=== PATIENT | female | born 1965 | race Caucasian/White ===

== ENCOUNTER 2018-07-29 20:35 | Inpatient (IN) ==
[2018-07-29] MEDS ORDERED: ceFAZolin 2 GM Premix Inj 2 GM/50 ML PIGGYBACK IV.SIG ONE ×3 (20:40→22:11)
[2018-07-29] MEDS ORDERED: Gentamicin/NS 80 mg Premix 100 ML IV.SIG ONE (20:40)
[2018-07-29] MEDS ORDERED: Morphine Inj 4 MG/ML Vial ONE ×2 (20:44→20:50)
[2018-07-29 20:55] LABS: Baso # (Auto) 0.1 th/mm3 (0.0-0.2); Baso % (Auto) 1.1 % (0.0-2.0); Eos # (Auto) 0.2 th/mm3 (0.0-0.4); Eos % (Auto) 2.2 % (0.0-4.0); Hematocrit 35.1 % (35.0-46.0); Hemoglobin 12.8 gm/dL (11.6-15.3); Lymph # (Auto) 3.6 th/mm3 (1.0-4.8); Mean Corpuscular HGB Conc 36.4 % (32.0-36.0); Mean Corpuscular Hemoglobin 30.4 pg (27.0-34.0); Mean Corpuscular Volume 83.5 fL (80.0-100.0); Mean Platelet Volume 8.8 fL (7.0-11.0); Mono # (Auto) 0.4 th/mm3 (0.0-0.9); Mono % (Auto) 3.7 % (0.0-8.0); Neut # (Auto) 5.2 th/mm3 (1.8-7.7); Platelet Count 409 th/mm3 (150-450); Red Cell Distribution Width 13.4 % (11.6-17.2); White Blood Count 9.5 th/mm3 (4.0-11.0)
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
[2018-07-29 21:16] LABS: Activated Partial Thrombo Time 21.7 sec (23.4-31.7); Prothrombin Time 9.7 sec (9.8-11.6)
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
[2018-07-29] MEDS ORDERED: Morphine Inj 4 MG/ML Vial IV.PUSH ONE ×3 (21:53→22:15)
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
[2018-07-29] MEDS ORDERED: Diphtheria/Tetanus/Pertussis Vaccine Inj 0.5 ML Syringe IM ONE (22:11)
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
[2018-07-29] MEDS ORDERED: Acetaminophen 325 MG Tablet PO PRN (23:39)
[2018-07-29] MEDS ORDERED: Naloxone Inj 0.4 MG/ML Vial IV.PUSH PRN (23:42)
[2018-07-30] MEDS: Pantoprazole Inj 40 MG Vial IV.PUSH SCH (01:11)
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
[2018-07-30] MEDS ORDERED: Sod Chloride 0.9% Inj 1,000 ML IV.SIG SCH (01:30)
[2018-07-30 01:43] LABS: Hematocrit 23.1 % (35.0-46.0); Hemoglobin 7.5 gm/dL (11.6-15.3)
[2018-07-30] MEDS: Sod Chloride 0.9% Inj 1,000 ML IV.CONT SCH ×3 (02:55→17:51)
[2018-07-30] MEDS: HYDROmorphone PCA Inj 6 MG/30 ML PCA.VIAL PCA PRN ×2 (03:04→18:48)
[2018-07-30] MEDS: Chlorhexidine Gluconate 2% 1 Pack (2 Cloths) TOPICAL SCH (03:41)
[2018-07-30] MEDS ORDERED: Chlorhexidine Gluconate 2% 1 Pack (2 Cloths) TOPICAL PRN (04:00)
[2018-07-30] MEDS ORDERED: Potassium Chlor 20 mEq Premix 20 MEQ/100 ML PIGGYBACK IV.SIG PRN (04:13)
[2018-07-30] MEDS ORDERED: Potassium Chlor 40 mEq Premix 40 MEQ/100 ML PIGGYBACK IV.SIG PRN ×2 (04:13)
[2018-07-30] MEDS ORDERED: Potassium Phosphate 500 MG Soluble Tablet PO PRN ×2 (04:13)
[2018-07-30] MEDS ORDERED: Sodium Phosphate Inj 30 MMOL in Sodium Chlor 0.9% Inj 250 ML IV.SIG PRN (04:13)
[2018-07-30] MEDS ORDERED: Magnesium Sulfate Inj 4 GM in Sodium Chlor 0.9% Inj 92 ML IV.SIG PRN (04:13)
[2018-07-30] MEDS ORDERED: Potassium Chloride 25 MEQ Effervescent Tablet PO PRN (04:13)
[2018-07-30] MEDS ORDERED: Magnesium Sulfate Inj 2 GM in Sodium Chlor 0.9% Inj 96 ML IV.SIG PRN (04:13)
[2018-07-30] MEDS ORDERED: Potassium Phosphate Inj 30 MMOL in Sodium Chlor 0.9% Inj 250 ML IV.SIG PRN (04:13)
[2018-07-30] MEDS ORDERED: Magnesium Oxide 400 MG Tablet PO PRN (04:13)
[2018-07-30] MEDS ORDERED: ceFAZolin Inj 2,000 MG in Sodium Chlor 0.9% Inj 80 ML IV.SIG SCH (06:00)
[2018-07-30 06:19] LABS: Baso % (Auto) 0.2 % (0.0-2.0); Hematocrit 25.5 % (35.0-46.0); Hemoglobin 8.4 gm/dL (11.6-15.3); Lymph # (Auto) 0.7 th/mm3 (1.0-4.8); Lymph % (Auto) 5.5 % (9.0-44.0); Mean Corpuscular HGB Conc 32.9 % (32.0-36.0); Mean Corpuscular Hemoglobin 28.4 pg (27.0-34.0); Mean Corpuscular Volume 86.2 fL (80.0-100.0); Mean Platelet Volume 8.6 fL (7.0-11.0); Mono # (Auto) 0.8 th/mm3 (0.0-0.9); Mono % (Auto) 6.4 % (0.0-8.0); Neut # (Auto) 10.8 th/mm3 (1.8-7.7); Neut % (Auto) 87.9 % (16.0-70.0); Platelet Count 188 th/mm3 (150-450); Red Blood Count 2.96 mil/mm3 (4.00-5.30); White Blood Count 12.3 th/mm3 (4.0-11.0)
[2018-07-30 06:41] LABS: Anion Gap 8 meq/L (5-15); Blood Urea Nitrogen 13 mg/dL (7-18); Calcium 6.6 mg/dL (8.5-10.1); Carbon Dioxide 20.8 meq/L (21.0-32.0); Chloride 115 meq/L (98-107); Glomerular Filtration Rate Greater Than 89 mL/min (>89); Glucose,Random 124 mg/dL (74-106); Potassium 3.9 meq/L (3.5-5.1); Sodium 144 meq/L (136-145)
[2018-07-30] MEDS ORDERED: Famotidine PF Inj 20 MG/2 ML Vial ONE (06:43)
[2018-07-30 06:53] LABS: Albumin 2.2 g/dL (3.4-5.0)
[2018-07-30] MEDS ORDERED: ceFAZolin 1 GM Premix Inj 2 GM/100 ML PIGGYBACK IV.SIG ONE (07:07)
[2018-07-30] MEDS ORDERED: fentaNYL Citrate Inj 100 MCG/2 ML Ampul ONE (07:31)
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
[2018-07-30] MEDS ORDERED: ceFAZolin 2 GM Premix Inj 2 GM/50 ML PIGGYBACK IV.SIG SCH ×2 (07:45→14:00)
[2018-07-30] MEDS ORDERED: Albumin Human 25% Inj 100 ML IV.SIG ONE (08:33)
[2018-07-30] MEDS ORDERED: Gentamicin/NS 80 mg Premix 100 ML IV.SIG ONE (08:44)
[2018-07-30] MEDS ORDERED: HYDROmorphone PF Inj 0.5 MG/0.5 ML Syringe ONE ×3 (09:34→10:03)
--- NOTE | 2018-07-30 09:35 | XR ---
EXAM DATE: 07/30/2018 9:30 AM EST AGE/SEX: 53 years / Female INDICATIONS: Surgical repair, external fixation. CLINICAL DATA: This is the patient's initial encounter. Patient reports that signs and symptoms have been present for 1 day and indicates a pain score of Nonresponsive. MEDICAL/SURGICAL HISTORY: Non-responsive. Non-responsive. COMPARISON: No prior exams available for comparison. CONCLUSION: Fluoroscopic images demonstrates placement of external fixation device along the tibia and femur fixa ting a distal femoral fracture. Electronically signed by: Morgan Cheng MD Board Certified Radiologist 07/30/2018 9:34 AM EST
--- NOTE | 2018-07-30 10:09 | XR ---
EXAM DATE: 07/30/2018 10:03 AM EST AGE/SEX: 53 years / Female INDICATIONS: Post operative, external fixation. CLINICAL DATA: This is the patient's initial encounter. Patient reports that signs and symptoms have been present for 1 day and indicates a pain score of Nonresponsive. MEDICAL/SURGICAL HISTORY: Non-responsive. Non-responsive. COMPARISON: [facility], TIBIA FIBULA LEFT 2V, 07/30/2018. [facility], TIBIA FIBULA LEFT 1V, 07/29/2018. . FINDINGS: Views of left knee obtained. External fixation device along the femur and tibia fixating comminuted f racture of distal femur and proximal tibia. CONCLUSION: External fixation device with distal femoral and proximal tibial fractures. Electronically signed by: Morgan Cheng MD Board Certified Radiologist 07/30/2018 10:08 AM EST
--- NOTE | 2018-07-30 10:11 | XR ---
EXAM DATE: 07/30/2018 10:02 AM EST AGE/SEX: 53 years / Female INDICATIONS: Post operative, external fixation. CLINICAL DATA: This is the patient's initial encounter. Patient reports that signs and symptoms have been present for 1 day and indicates a pain score of Nonresponsive. MEDICAL/SURGICAL HISTORY: Non-responsive. Non-responsive. COMPARISON: [facility] [place], FOOT LEFT 1V, 07/29/2018. . FINDINGS: External fixation device along the mid tibia. Proximal tibial fracture again seen without significant displacement. Soft tissue swelling. CONCLUSION: External fixation device along the mid shaft of the tibia Electronically signed by: Morgan Cheng MD Board Certified Radiologist 07/30/2018 10:10 AM EST
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
[2018-07-30] MEDS ORDERED: Vancomycin Consult Pharmacy OTHER PRN (10:36)
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
[2018-07-30] MEDS: Vancomycin Inj 1,000 MG in Sodium Chlor 0.9% Inj 250 ML IV.SIG SCH (11:50)
[2018-07-30] MEDS: Ketorolac Inj 30 MG/ML (IVP) Vial IV.PUSH SCH ×2 (11:50→17:48)
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
[2018-07-30] MEDS: Methocarbamol 500 MG Tablet PO SCH (13:43)
--- NOTE | 2018-07-30 13:49 | ECG ---
Date Performed: 07/30/2018 Time Performed: 05:13:06 PTAGE: 53 years EKG: Sinus rhythm . Anterolateral ST-T changes are nonspecific Low QRS voltages in precordial leads Borderline ECG NO PREVIOUS TRACING DOCTOR: Christopher Arteaga Interpretating Date/Time 07/30/2018 13:47:55
[2018-07-30] MEDS ORDERED: traZODone 50 MG Tablet PO PRN (17:15)
[2018-07-30 20:10] LABS: Mean Corpuscular HGB Conc 33.6 % (32.0-36.0); Mean Corpuscular Hemoglobin 28.5 pg (27.0-34.0); Mean Corpuscular Volume 84.8 fL (80.0-100.0); Mean Platelet Volume 8.6 fL (7.0-11.0); Platelet Count 149 th/mm3 (150-450); Red Blood Count 1.85 mil/mm3 (4.00-5.30); Red Cell Distribution Width 14.5 % (11.6-17.2); White Blood Count 6.7 th/mm3 (4.0-11.0)
[2018-07-30 20:16] LABS: Hematocrit 15.6 % (35.0-46.0); Hemoglobin 5.3 gm/dL (11.6-15.3)
[2018-07-30 20:38] LABS: Anion Gap 10 meq/L (5-15); Blood Urea Nitrogen 8 mg/dL (7-18); Calcium 5.9 mg/dL (8.5-10.1); Carbon Dioxide 17.9 meq/L (21.0-32.0); Chloride 116 meq/L (98-107); Glomerular Filtration Rate Greater Than 89 mL/min (>89); Glucose,Random 140 mg/dL (74-106); Magnesium 1.3 mg/dL (1.5-2.5); Potassium 3.4 meq/L (3.5-5.1); Sodium 144 meq/L (136-145)
[2018-07-30 20:54] LABS: Albumin 2.1 g/dL (3.4-5.0)
[2018-07-30 20:58] LABS: Calcium-Albumin Corrected 7.4 mg/dL (8.5-10.1)
[2018-07-31 00:15] LABS: Hemoglobin 9.4 gm/dL (11.6-15.3)
[2018-07-31] MEDS: Docusate Sodium 100 MG Capsule PO SCH ×2 (00:16→10:47)
[2018-07-31] MEDS: Pantoprazole Inj 40 MG Vial IV.PUSH SCH (00:17)
[2018-07-31] MEDS: Vancomycin Inj 1,000 MG in Sodium Chlor 0.9% Inj 250 ML IV.SIG SCH ×2 (00:17→12:40)
[2018-07-31] MEDS: Methocarbamol 500 MG Tablet PO SCH ×4 (00:17→23:32)
[2018-07-31] MEDS: Potassium Chlor 20 mEq Premix 20 MEQ/100 ML PIGGYBACK IV.SIG PRN ×2 (01:40→03:59)
[2018-07-31 03:52] LABS: Baso % (Auto) 0.1 % (0.0-2.0); Hematocrit 27.2 % (35.0-46.0); Hemoglobin 9.6 gm/dL (11.6-15.3); Lymph # (Auto) 0.6 th/mm3 (1.0-4.8); Lymph % (Auto) 7.7 % (9.0-44.0); Mean Corpuscular HGB Conc 35.4 % (32.0-36.0); Mean Corpuscular Hemoglobin 28.8 pg (27.0-34.0); Mean Corpuscular Volume 81.2 fL (80.0-100.0); Mean Platelet Volume 8.8 fL (7.0-11.0); Mono # (Auto) 0.4 th/mm3 (0.0-0.9); Mono % (Auto) 4.8 % (0.0-8.0); Neut # (Auto) 7.1 th/mm3 (1.8-7.7); Neut % (Auto) 87.4 % (16.0-70.0); Platelet Count 123 th/mm3 (150-450); Red Blood Count 3.35 mil/mm3 (4.00-5.30); Red Cell Distribution Width 14.7 % (11.6-17.2); White Blood Count 8.1 th/mm3 (4.0-11.0)
[2018-07-31 04:28] LABS: Alanine Aminotransferase 17 U/L (10-53); Albumin 2.5 g/dL (3.4-5.0); Alkaline Phosphatase 41 U/L (45-117); Anion Gap 7 meq/L (5-15); Aspartate Aminotransferase 28 U/L (15-37); Blood Urea Nitrogen 9 mg/dL (7-18); Calcium 7.3 mg/dL (8.5-10.1); Carbon Dioxide 23.5 meq/L (21.0-32.0); Chloride 114 meq/L (98-107); Glomerular Filtration Rate Greater Than 89 mL/min (>89); Glucose,Random 129 mg/dL (74-106); Potassium 4.4 meq/L (3.5-5.1); Sodium 144 meq/L (136-145); Total Protein 4.8 g/dL (6.4-8.2)
[2018-07-31] MEDS: Chlorhexidine Gluconate 2% 1 Pack (2 Cloths) TOPICAL SCH (05:41)
[2018-07-31] MEDS: HYDROmorphone PCA Inj 6 MG/30 ML PCA.VIAL PCA PRN (06:21)
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
--- NOTE | 2018-07-31 09:57 | ECG ---
Date Performed: 07/30/2018 Time Performed: 20:06:04 PTAGE: 53 years EKG: Sinus rhythm . Anterior T wave changes are nonspecific Borderline ECG PREVIOUS TRACING : 07/30/2018 05.13 DOCTOR: Sravan Mccall Interpretating Date/Time 07/31/2018 09:55:11
[2018-07-31] MEDS: Enoxaparin Inj 30 MG/0.3 ML Syringe SQ SCH ×2 (10:47→23:32)
[2018-07-31] MEDS: Sod Chloride 0.9% Inj 1,000 ML IV.CONT SCH ×4 (12:41→21:40)
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
[2018-07-31] MEDS ORDERED: *HYDROmorphone PF Inj 1 MG/ML Ampul PERIprocedural Use ONLY ONE (15:46)
[2018-07-31] MEDS ORDERED: Chlorhexidine Gluconate 0.12% Liq 15 ML UDC ONE (16:05)
[2018-07-31] MEDS ORDERED: Lidocaine 1%/Epinephrine 1:100,000 Inj 50 ML Vial ONE (16:06)
--- NOTE | 2018-07-31 16:17 | P.OP ---
- Preoperative Diagnosis (1) Nasal bone fractures (2) Nasal septum fracture (3) LeFort II fracture - Postoperative Diagnosis (1) LeFort II fracture (2) Nasal bone fractures (3) Nasal septum fracture Date of procedure: 07/31/18 Procedure: - Open reduction, internal fixation of a LeFort II fracture - Closed reduction of nasal fracture and nasal septum fracture - Layered closure of right supraorbital laceration (6 cm) Implants: -KLS 2.0 L plates x2 -KLS 1.5 L plate x1 -KLS 1.5 curved plate x1 -KLS 1.5 straight 6 hole plate -KLS 1.5 and 2.0mm screws Anesthesia: GETA, local Surgeon: Fernie Sandoval DDS, MD Carpet Cutter: Buddy Baez Estimated blood loss (mL): 75 IV fluids (mL): 1,500 Urine output (mL): 250 Pathology: none sent Operation and Findings: Operative findings: - Midface was stable and the occlusion was repeatable - Forced duction test was normal at the beginning and conclusion of the case with no extraocular muscle restriction -Bilateral nasal passages were clear and equal following manipulation of the nasal septum. Procedure: The patient was identified in the preoperative holding area and medical history and informed consent were reviewed with the patient. All questions were answered. The patient was taken via stretcher to operating room 8. Standard lines and monitors were applied. The patient was preoxygenated and general anesthesia was induced via IV. The patient was intubated nasoendotracheally without complications. The tube was secured by the attacher team. Bilateral breath sounds and end tidal CO2 were noted. The patient was then transferred to the operating room table and placed in the supine position. Both arms were tucked. Extremities were evaluated and found to be in normal range of motion with all pressure points padded. Preoperative antibiotics were administered. A second timeout was made. Local anesthetic was injected in the bilateral maxilla and mandible. The patient was prepped and draped using sterile technique in a usual attacher manner. A throat pack was placed and noted. A forced duction test was performed in the bilateral globes and was normal without restriction of the extraocular muscles. Vishnu arch bars were measured to fit the dentition of the mandible and maxilla. Beginning with the maxilla, an Vishnu arch bar was ligated to the individual teeth from premolar to premolar with the exception of tooth #8 which had grade II mobility pre-operatively using 24-gauge wire. Stability of the arch bar was then verified using wire drivers and found to be stable and nonmobile. The mandibular Vishnu arch bar was then placed and ligated to the available dentition using 24-gauge wire from premolar to premolar. Stability was then verified with a wire haul driver. Electrocautery was then used to make a a right maxillary vestibular incision from the zygomatic buttress toward the maxillary midline. The incision was carried down to bone and #9 periosteal elevator was used to dissect in a subperiosteal plane to expose the anterior maxilla. The fractures were identified along the zygomaticomaxillary and nasomaxillary buttresses. Electrocautery was then used to make a left maxillary vestibular incision from the zygomatic buttress toward the maxillary midline. The incision was carried down to bone and #9 periosteal elevator was used to dissect in a subperiosteal plane to expose the anterior maxilla. The fractures were identified along the zygomaticomaxillary and nasomaxillary buttresses. The incisions were packed with Raytecs and attention was then directed to the right supraorbital region. The right supraorbital laceration was irrigated with copious normal saline and a #15 blade was used to extend the incision laterally and deep to the periosteum to the zygomaticofacial suture region along the superolateral aspect of the right orbit. Electrocautery was used to achieve hemostasis. A periosteal elevator was then used to dissect in a subperiosteal plane used to explore the fracture of the right zygomaticofacial region. Site was then packed with a Ray-Ann. Attention was then directed back intraorally. The intraoral RayTecs were removed The patient was then brought into maxillomandibular fixation using 24-gauge wire. The occlusion was stable and repeatable. Attention was then turned back to the right maxilla where the fractures were noted to be well aligned. A 2.0 KLS L-plate was then bent to conform to the right zygomaticomaxillary buttress and was subsequently secured in place via 2.0 KLS screws via predrilled osteotomies under copious irrigation. Next a 1.5 KLS 6-hole plate was adapted to the nasomaxillary buttress and secured in place with 4, 1.5 KLS screws via predrilled osteotomies under copious irrigation. Attention was then turned to the left maxilla with a fractures were noted to be well aligned. A 2.0 KLS L plate was then bent to conform to the left zygomaticomaxillary buttress and was subsequently were secured in place via 2.0 KLS screws were predrilled osteotomies under copious irrigation. Next, a 1.5 KLS L plate was adapted to the left nasomaxillary buttress and secured in place with 4, 1.5 KLS screws via predrilled osteotomies under copious irrigation. Attention was then directed to the right supraorbital region where a 1.5 KLS 7 hole curved plate was adapted to the right zygomaticofacial region. The fracture was noted to be well aligned and the plate was secured in place with 4 , 1.5 KLS screws via predrilled osteotomies under copious irrigation. Attention was then turned intraorally where the vestibular incision was irrigated with copious normal saline and both the right and left vestibular incisions were reapproximated using 3-0 Vicryl in a running interlocking and interrupted fashion. There was a laceration of the right mandibular anterior vestibule extending only through mucosa which was irrigated with copious normal saline and reapproximated in interrupted fashion using 3-0 Vicryl suture and 3- 0 chromic suture. The soft tissue of the lower lip was noted to have 3, 5 mm lacerations through the vermilion which were reapproximated using 3-0 chromic suture in an interrupted fashion after irrigation with copious normal saline. Attention was then directed back to the supraorbital region where electrocautery was used to achieve hemostasis. The wound was irrigated with copious normal saline. The laceration was closed in layers using 3-0 Vicryl suture for the deeper layers in a buried interrupted fashion. The skin was then closed in a running interlocking fashion using 5-0 Prolene suture. The patient was then cleansed and dried. Patient was turned over to the anesthesia care team where she was extubated without complication. An LMA was then placed. Bacitracin was applied to the laceration and the abrasion over the right cheek. Local anesthetic was locally infiltrated intranasally along the fracture site as well as via bilateral CN V1 and CN V II nerve blocks. A urethral sound was placed in the bilateral nares and the left naris was noted to be more constricted than the right. Asch forceps were used to reposition the nasal septum into proper anatomical alignment. Afrin nasal spray was used to achieve hemostasis intranasally. The bilateral nasal bones were then elevated using a Goodrich elevator. The nasal bones were manipulated digitally until good anatomical contour was obtained. A uterine sound was then passed along each nasal passage with good patency noted. Sarmiento splints coated with bacitracin were placed in the bilateral nares to hold the septum in proper anatomical position and secured in place with a single interrupted 2-0 silk suture. Mastisol was placed over the dorsum of the nose and adhesive strips were placed over the skin along the nasal dorsum. A Mazon splint was placed on the dorsum of the nose. The oropharynx was suctioned thoroughly. The patient was then turned back to the Anesthesia team, where she was awakened without event and the LMA was removed. The patient was then taken to the PACU for recovery. Post-operative plan: Patient is to return to the trauma service for management of the remainder of her injuries. Patient will be placed on a pured diet and kept on sinus precautions. Her nasal splints and skin sutures will be removed in approximately 1 week.
[2018-07-31] MEDS ORDERED: Artificial Tears Opth Drops 15 ML Bottle ONE (16:58)
[2018-07-31] MEDS ORDERED: Dexmedetomidine Inj 200 MCG/2 ML Vial ONE (17:12)
[2018-07-31] MEDS ORDERED: ceFAZolin Inj 1 GM Vial (Addvantage) IV.SIG ONE (18:05)
[2018-07-31] MEDS: Microfibrillar Collagen Hemostat 1 GM Packet TOPICAL ONE ×2 (19:15→19:33)
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
--- NOTE | 2018-07-31 20:40 | P.BOP ---
- Preoperative Diagnosis (1) LeFort II fracture (2) Nasal bone fractures (3) Nasal septum fracture - Postoperative Diagnosis (1) LeFort II fracture (2) Nasal bone fractures (3) Nasal septum fracture Date of procedure: 07/31/18 Procedure: - ORIF LeFort II fracture - Closed reduction of nasal bone and nasal septum fracture - Layered closure of right supraorbital laceration (6 cm) Implants: -KLS 2.0 L plates x2 -KLS 1.5 L plate x1 -KLS 1.5 curved plate x1 -KLS 1.5 straight 6 hole plate -KLS 1.5 and 2.0mm screws Anesthesia: GETA, local Surgeon: Fernie Sandoval DDS, MD Bank Officer: Buddy Baez Estimated blood loss (mL): 75 IV fluids (mL): 1,500 Urine output (mL): 250 Pathology: none sent Condition: stable Disposition: ICU
[2018-07-31] MEDS ORDERED: fentaNYL Citrate Inj 100 MCG/2 ML Ampul ONE (20:47)
[2018-08-01] MEDS: Docusate Sodium 100 MG Capsule PO SCH ×3 (00:20→20:46)
[2018-08-01] MEDS: Pantoprazole Inj 40 MG Vial IV.PUSH SCH ×2 (00:51→23:39)
[2018-08-01] MEDS: Vancomycin Inj 1,000 MG in Sodium Chlor 0.9% Inj 250 ML IV.SIG SCH ×2 (00:51→13:00)
[2018-08-01] MEDS: HYDROmorphone PCA Inj 6 MG/30 ML PCA.VIAL PCA PRN (01:19)
[2018-08-01 03:44] LABS: Baso % (Auto) 0.2 % (0.0-2.0); Hematocrit 25.7 % (35.0-46.0); Hemoglobin 8.9 gm/dL (11.6-15.3); Lymph # (Auto) 0.8 th/mm3 (1.0-4.8); Lymph % (Auto) 10.3 % (9.0-44.0); Mean Corpuscular HGB Conc 34.5 % (32.0-36.0); Mean Corpuscular Hemoglobin 28.6 pg (27.0-34.0); Mean Corpuscular Volume 82.9 fL (80.0-100.0); Mean Platelet Volume 9.3 fL (7.0-11.0); Mono # (Auto) 0.5 th/mm3 (0.0-0.9); Mono % (Auto) 6.6 % (0.0-8.0); Neut # (Auto) 6.4 th/mm3 (1.8-7.7); Neut % (Auto) 82.9 % (16.0-70.0); Platelet Count 142 th/mm3 (150-450); Red Cell Distribution Width 15.4 % (11.6-17.2); White Blood Count 7.7 th/mm3 (4.0-11.0)
[2018-08-01 04:09] LABS: Albumin 2.3 g/dL (3.4-5.0); Anion Gap 5 meq/L (5-15); Aspartate Aminotransferase 27 U/L (15-37); Blood Urea Nitrogen 8 mg/dL (7-18); Calcium 7.6 mg/dL (8.5-10.1); Carbon Dioxide 25.8 meq/L (21.0-32.0); Chloride 113 meq/L (98-107); Glomerular Filtration Rate Greater Than 89 mL/min (>89); Glucose,Random 118 mg/dL (74-106); Potassium 4.3 meq/L (3.5-5.1); Sodium 144 meq/L (136-145)
[2018-08-01 04:13] LABS: Alanine Aminotransferase 14 U/L (10-53); Alkaline Phosphatase 42 U/L (45-117)
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
[2018-08-01] MEDS: Methocarbamol 500 MG Tablet PO SCH ×3 (05:23→21:13)
[2018-08-01] MEDS: Chlorhexidine Gluconate 2% 1 Pack (2 Cloths) TOPICAL SCH (05:23)
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
[2018-08-01] MEDS: Enoxaparin Inj 30 MG/0.3 ML Syringe SQ SCH (09:43)
[2018-08-01] MEDS: HYDROmorphone PF Inj 0.5 MG/0.5 ML Syringe IV.PUSH PRN ×5 (11:31→23:39)
[2018-08-01] MEDS: Sod Chloride 0.9% Inj 1,000 ML IV.CONT SCH ×2 (11:32→23:39)
[2018-08-01] MEDS ORDERED: Pharmacy Ordered Lab Info OTHER ONE (11:45)
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
[2018-08-02] MEDS: Vancomycin Inj 1,250 MG in Sodium Chlor 0.9% Inj 250 ML IV.SIG SCH ×3 (00:44→23:36)
[2018-08-02] MEDS: HYDROmorphone PF Inj 0.5 MG/0.5 ML Syringe IV.PUSH PRN ×7 (02:42→23:47)
[2018-08-02 05:25] LABS: Baso % (Auto) 0.2 % (0.0-2.0); Eos % (Auto) 0.7 % (0.0-4.0); Hematocrit 25.6 % (35.0-46.0); Hemoglobin 8.8 gm/dL (11.6-15.3); Lymph % (Auto) 31.4 % (9.0-44.0); Mean Corpuscular HGB Conc 34.4 % (32.0-36.0); Mean Corpuscular Hemoglobin 28.7 pg (27.0-34.0); Mean Corpuscular Volume 83.4 fL (80.0-100.0); Mean Platelet Volume 9.1 fL (7.0-11.0); Mono # (Auto) 0.4 th/mm3 (0.0-0.9); Mono % (Auto) 5.7 % (0.0-8.0); Neut # (Auto) 3.9 th/mm3 (1.8-7.7); Platelet Count 136 th/mm3 (150-450); Red Blood Count 3.08 mil/mm3 (4.00-5.30); Red Cell Distribution Width 15.2 % (11.6-17.2); White Blood Count 6.2 th/mm3 (4.0-11.0)
[2018-08-02 05:50] LABS: Alanine Aminotransferase 15 U/L (10-53); Albumin 2.2 g/dL (3.4-5.0); Anion Gap 5 meq/L (5-15); Aspartate Aminotransferase 34 U/L (15-37); Blood Urea Nitrogen 5 mg/dL (7-18); Calcium 7.5 mg/dL (8.5-10.1); Carbon Dioxide 30.7 meq/L (21.0-32.0); Chloride 109 meq/L (98-107); Glomerular Filtration Rate Greater Than 89 mL/min (>89); Glucose,Random 87 mg/dL (74-106); Potassium 3.4 meq/L (3.5-5.1); Sodium 145 meq/L (136-145)
[2018-08-02] MEDS: Chlorhexidine Gluconate 2% 1 Pack (2 Cloths) TOPICAL SCH (05:51)
[2018-08-02 05:52] LABS: Alkaline Phosphatase 47 U/L (45-117); Total Protein 4.8 g/dL (6.4-8.2)
[2018-08-02] MEDS: Methocarbamol 500 MG Tablet PO SCH ×3 (05:56→21:22)
[2018-08-02] MEDS: Sod Chloride 0.9% Inj 1,000 ML IV.CONT SCH ×2 (08:08→16:46)
[2018-08-02] MEDS: Docusate Sodium 100 MG Capsule PO SCH ×2 (09:13→21:22)
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
[2018-08-02] MEDS: Enoxaparin Inj 30 MG/0.3 ML Syringe SQ SCH (21:21)
[2018-08-02] MEDS: Pantoprazole Inj 40 MG Vial IV.PUSH SCH (23:47)
[2018-08-03] MEDS: Sod Chloride 0.9% Inj 1,000 ML IV.CONT SCH (04:21)
[2018-08-03] MEDS: Chlorhexidine Gluconate 2% 1 Pack (2 Cloths) TOPICAL SCH (04:21)
[2018-08-03] MEDS: Methocarbamol 500 MG Tablet PO SCH ×4 (04:58→21:07)
[2018-08-03 05:27] LABS: Baso % (Auto) 0.5 % (0.0-2.0); Eos # (Auto) 0.1 th/mm3 (0.0-0.4); Eos % (Auto) 2.3 % (0.0-4.0); Hematocrit 27.5 % (35.0-46.0); Hemoglobin 9.6 gm/dL (11.6-15.3); Lymph # (Auto) 1.4 th/mm3 (1.0-4.8); Lymph % (Auto) 26.7 % (9.0-44.0); Mean Corpuscular HGB Conc 34.9 % (32.0-36.0); Mean Corpuscular Hemoglobin 29.1 pg (27.0-34.0); Mean Corpuscular Volume 83.4 fL (80.0-100.0); Mean Platelet Volume 8.4 fL (7.0-11.0); Mono # (Auto) 0.3 th/mm3 (0.0-0.9); Mono % (Auto) 4.8 % (0.0-8.0); Neut # (Auto) 3.6 th/mm3 (1.8-7.7); Neut % (Auto) 65.7 % (16.0-70.0); Platelet Count 194 th/mm3 (150-450); Red Cell Distribution Width 14.6 % (11.6-17.2); White Blood Count 5.4 th/mm3 (4.0-11.0)
[2018-08-03 05:58] LABS: Alanine Aminotransferase 21 U/L (10-53); Albumin 2.4 g/dL (3.4-5.0); Anion Gap 5 meq/L (5-15); Aspartate Aminotransferase 46 U/L (15-37); Blood Urea Nitrogen 3 mg/dL (7-18); Carbon Dioxide 35.1 meq/L (21.0-32.0); Chloride 103 meq/L (98-107); Glomerular Filtration Rate Greater Than 89 mL/min (>89); Glucose,Random 93 mg/dL (74-106); Potassium 3.5 meq/L (3.5-5.1); Sodium 143 meq/L (136-145)
[2018-08-03 06:00] LABS: Alkaline Phosphatase 58 U/L (45-117); Total Protein 5.2 g/dL (6.4-8.2)
[2018-08-03] MEDS: HYDROmorphone PF Inj 0.5 MG/0.5 ML Syringe IV.PUSH PRN ×4 (08:33→21:51)
[2018-08-03] MEDS: Docusate Sodium 100 MG Capsule PO SCH ×2 (08:33→20:41)
[2018-08-03] MEDS: Enoxaparin Inj 30 MG/0.3 ML Syringe SQ SCH ×2 (08:33→20:42)
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
[2018-08-03] MEDS ORDERED: Pharmacy Ordered Lab Info OTHER ONE ×2 (11:45→23:45)
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
[2018-08-03] MEDS: Vancomycin Inj 1,250 MG in Sodium Chlor 0.9% Inj 250 ML IV.SIG SCH (12:13)
[2018-08-04] MEDS: Pantoprazole Inj 40 MG Vial IV.PUSH SCH
[2018-08-04 00:18] LABS: Alanine Aminotransferase 20 U/L (10-53); Albumin 2.4 g/dL (3.4-5.0); Anion Gap 6 meq/L (5-15); Aspartate Aminotransferase 39 U/L (15-37); Blood Urea Nitrogen 5 mg/dL (7-18); Calcium 7.8 mg/dL (8.5-10.1); Carbon Dioxide 32.7 meq/L (21.0-32.0); Chloride 101 meq/L (98-107); Glomerular Filtration Rate Greater Than 89 mL/min (>89); Glucose,Random 159 mg/dL (74-106); Potassium 3.3 meq/L (3.5-5.1); Sodium 140 meq/L (136-145)
[2018-08-04 00:21] LABS: Alkaline Phosphatase 58 U/L (45-117); Total Protein 5.3 g/dL (6.4-8.2); Vancomycin,Trough 11.2 mcg/mL (5.0-10.0)
[2018-08-04] MEDS: Methocarbamol 500 MG Tablet PO SCH ×3 (05:59→22:21)
[2018-08-04 06:18] LABS: Baso % (Auto) 0.3 % (0.0-2.0); Eos # (Auto) 0.2 th/mm3 (0.0-0.4); Eos % (Auto) 3.5 % (0.0-4.0); Hematocrit 29.6 % (35.0-46.0); Hemoglobin 10.1 gm/dL (11.6-15.3); Lymph # (Auto) 1.5 th/mm3 (1.0-4.8); Lymph % (Auto) 23.4 % (9.0-44.0); Mean Corpuscular HGB Conc 34.2 % (32.0-36.0); Mean Corpuscular Hemoglobin 28.6 pg (27.0-34.0); Mean Corpuscular Volume 83.8 fL (80.0-100.0); Mean Platelet Volume 8.5 fL (7.0-11.0); Mono # (Auto) 0.4 th/mm3 (0.0-0.9); Mono % (Auto) 6.7 % (0.0-8.0); Neut # (Auto) 4.1 th/mm3 (1.8-7.7); Neut % (Auto) 66.1 % (16.0-70.0); Platelet Count 219 th/mm3 (150-450); Red Blood Count 3.53 mil/mm3 (4.00-5.30); Red Cell Distribution Width 14.8 % (11.6-17.2); White Blood Count 6.2 th/mm3 (4.0-11.0)
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
[2018-08-04] MEDS: HYDROmorphone PF Inj 0.5 MG/0.5 ML Syringe IV.PUSH PRN ×4 (09:37→19:41)
[2018-08-04] MEDS: Enoxaparin Inj 30 MG/0.3 ML Syringe SQ SCH (09:40)
[2018-08-04] MEDS: Docusate Sodium 100 MG Capsule PO SCH (09:41)
[2018-08-04 12:18] LABS: Eosinophils 4 % (0-4); Lymphocytes 17 % (9-44); Monocytes 7 % (0-8); Platelet Estimate Normal (Normal); Platelet Morphology Normal (Normal); Tallied Nucleated RBC 1 (0-0)
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
[2018-08-04] MEDS: Vancomycin Inj 1,250 MG in Sodium Chlor 0.9% Inj 250 ML IV.SIG SCH ×3 (13:15)
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
[2018-08-05] MEDS: Vancomycin Inj 1,250 MG in Sodium Chlor 0.9% Inj 250 ML IV.SIG SCH ×3 (00:05→23:00)
[2018-08-05] MEDS: HYDROmorphone PF Inj 0.5 MG/0.5 ML Syringe IV.PUSH PRN (00:05)
[2018-08-05] MEDS: Pantoprazole Inj 40 MG Vial IV.PUSH SCH ×2 (00:05→23:00)
[2018-08-05] MEDS: Docusate Sodium 100 MG Capsule PO SCH ×3 (03:02→20:36)
[2018-08-05] MEDS: Enoxaparin Inj 30 MG/0.3 ML Syringe SQ SCH ×2 (03:02→12:10)
[2018-08-05] MEDS ORDERED: Chlorhexidine Gluconate 2% 1 Pack (2 Cloths) TOPICAL ONE (06:23)
[2018-08-05] MEDS ORDERED: Sodium Chlor 0.9% Inj 500 ML IV.SIG SCH (07:00)
[2018-08-05] MEDS ORDERED: ceFAZolin Inj 1 GM Vial (Addvantage) IV.SIG ONE (07:36)
[2018-08-05] MEDS ORDERED: Gentamicin Consult Pharmacy 1 EACH OTHER SCH (08:11)
[2018-08-05] MEDS ORDERED: Tobramycin Sulfate 1,200 MG Vial (for ortho/sterile core) OTHER ONE (09:06)
[2018-08-05] MEDS: Methocarbamol 500 MG Tablet PO SCH ×4 (09:11→21:37)
[2018-08-05] MEDS ORDERED: Post-op Orders (for Pharmacy) OTHER STA (09:55)
--- NOTE | 2018-08-05 10:08 | P.OP ---
- Preoperative Diagnosis (1) Closed bicondylar fracture of left tibial plateau Date of procedure: 08/05/18 Procedure: Irrigation and debridement of open left distal femur supracondylar fracture, open reduction internal fixation left bicondylar tibial plateau fracture, open reduction internal fixation intra-articular left supracondylar femur fracture, removal of external fixation Anesthesia: GETA Surgeon: Vaibhav Powell MD Timber Selector: MAGALY Cuenca PA-C The surgical procedure was assisted by my physician project administrative assistant. My P.A. presence was necessary throughout this case for the manipulation and positioning of the surgical extremity. My P.A. was assisting me throughout the duration of this procedure. The skill set of a physician project administrative assistant was medically necessary to complete this procedure. During the surgical case the surgical supplies sterilizer was working at the back table and the physician project administrative assistant was directly assisting me. Operation and Findings: Implants used: Synthes Plan of activity: Nonweightbearing, passive range of motion of knee Details of procedure: Informed consent was obtained, operative site was marked. Patient was brought to the OR, placed on OR table, and given IV sedation with GETA. IV antibiotics were administered. Timeout procedure was performed. At this point, a portion of the external fixator was removed. Clamps were loosened. Clamps and bars were removed. Pins were left in place. The operative leg was prepped with alcohol, followed with Hibiclens, draped in usual sterile fashion. The procedure began with irrigation and debridement of the open femur fracture. A 8-inch incision was made over the lateral aspect of the distal femur and proximal tibia. Subcutaneous tissue was dissected with Bovie. Iliotibial band was split in line with fibers. At this point the femur fracture was visualized. Traction was applied. At this point the fracture was debrided. Skin subcutaneous tissue and fascia were sharply debrided. Multiple bone fragments were excised. After excisional debridement was completed, the wound was thoroughly irrigated with 3 L of sterile saline. At this point attention was turned towards the tibial plateau fracture. The medial and lateral plateau fragments were manipulated. Steinmann pins were placed in each fragment to help manipulate them. The medial lateral fragments were reduced. Articular surface reduced into excellent alignment. A periarticular clamp was used to compress the fracture fragments. K-wires were used for provisional fixation. Fluoroscopy revealed excellent alignment of fracture. A proximal tibial plate was selected. The plate was provisionally held with K-wires. 3.5 cortical screws were used compress plate to bone distally, and a periarticular clamp was used to compress the medial and lateral tibial plateau fracture fragments together. Multiple locking screws were now placed proximally. Additional screws were placed in the shaft. K-wires were removed. Final fluoroscopy showed excellent alignment of fracture with well- placed hardware. Attention was now turned towards the distal femur. The intra-articular fragments were reduced first. The lateral condyle was split into 2 main fragments. These 2 fragments were manipulated and reduced to each other. K wires were used to hold provisional fixation. Next the medial and lateral condyles were reduced. Fracture tenaculums were used to compress fracture fragments. Additional Steinmann pins were used to hold provisional fixation. At this point a temporary external fixator was placed across the fracture to help hold length. The distal femur was now reduced relative to the shaft. There was a sizable segmental defect of the distal femur. Fracture was manipulated. The fracture reduced into near anatomic alignment. Steinmann pins were used to hold provisional fixation. At this point attention was turned to plate placement. A lateral condylar plate was selected and attached to the insertion handle jig. The plate was placed underneath the vastus lateralis. Steinmann pins were used to hold the plate to bone. Multiplanar fluoroscopy confirmed appropriate placement of plate. Multiple 4.5 cortical screws were now placed in percutaneous fashion through the plate. The plate was compressed to bone. Multiple locking screws were now placed in the distal segment of the distal femur. Additional screws were placed into the femoral shaft. All screws were predrilled and premeasured for appropriate length. Additional 3.5 cortical screws were placed distally to help hold the articular surface fragments in place. Final fluoroscopy revealed excellent alignment of fracture with well-placed hardware. Wound was thoroughly irrigated. The defect of the femur metaphysis was filled with 25 cc of Biosphere graft. Fascia was closed with #1 Vicryl. Subcutaneous tissue was closed with 3-0 Vicryl. Skin was closed with polly. Sterile dressings were applied. At this point the remainder of the external fixator was removed. The pins were removed with a drill. Dressings were applied. The patient was placed into a knee immobilizer and transferred to recovery in stable condition. Needle and sponge counts were correct.
[2018-08-05] MEDS ORDERED: *morphine SULFATE 10 MG/ML PERIprocedure ONLY ONE (11:49)
[2018-08-05] MEDS: Morphine Inj 4 MG/ML Vial IV.PUSH PRN ×4 (11:53→23:57)
[2018-08-05] MEDS: Calcium/Vitamin D 250/125 MG Tablet PO SCH ×2 (13:11→19:05)
--- NOTE | 2018-08-05 14:57 | XR ---
EXAM DATE: 08/05/2018 2:22 PM EST AGE/SEX: 53 years / Female INDICATIONS: Left tibia ORIF. CLINICAL DATA: This is the patient's initial encounter. Patient reports that signs and symptoms have been present for 1 day and indicates a pain score of Nonresponsive. MEDICAL/SURGICAL HISTORY: Non-responsive. Non-responsive. COMPARISON: [facility], KNEE COMPLETE LEFT 4V, 07/30/2018. . FINDINGS: Intraoperative OEC spot images of the proximal tibia and fibula show the proximal tibial metadiaphyse al fracture secured with a sideplate and osseous screws. Fracture fragments are in adequate anatomic alignment. CONCLUSION: Open reduction and internal fixation of proximal tibial metadiaphyseal fracture as above. Fracture fr agments appear to be in adequate anatomic alignment. Electronically signed by: Tarik Sanchez MD Board Certified Radiologist 08/05/2018 2:55 PM EST
--- NOTE | 2018-08-05 15:00 | XR ---
EXAM DATE: 08/05/2018 2:24 PM EST AGE/SEX: 53 years / Female INDICATIONS: Left femur ORIF. CLINICAL DATA: This is the patient's initial encounter. Patient reports that signs and symptoms have been present for 1 day and indicates a pain score of Nonresponsive. MEDICAL/SURGICAL HISTORY: Non-responsive. Non-responsive. COMPAR[place] [facility] [place] 4[place]. . FINDINGS: Intraoperative only C-spine images of the left knee demonstrate an extensively comminuted fracture th rough the distal femoral metadiaphysis. The main fracture fragments are secured with a sideplate and multiple osseous screws and appear to be in adequate anatomic alignment. A prominent gap between the distal diaphysis and metaphysis represents the area of small osseous fragments. CONCLUSION: 1. Successful open reduction internal fixation of the extensively comminuted distal femoral metadiap hyseal fracture as above. 2. Main fracture fragments are in adequate anatomic alignment. Prominent gap between the distal diap hysis and metadiaphysis representing the area of extensive comminution Electronically signed by: Tarik Sanchez MD Board Certified Radiologist 08/05/2018 2:59 PM EST
[2018-08-05] MEDS ORDERED: ceFAZolin 2 GM Premix Inj 2 GM/50 ML PIGGYBACK IV.SIG SCH (16:00)
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
[2018-08-06] MEDS: Morphine Inj 4 MG/ML Vial IV.PUSH PRN ×3 (05:26→10:53)
[2018-08-06] MEDS: Methocarbamol 500 MG Tablet PO SCH ×4 (05:26→22:35)
[2018-08-06 06:23] LABS: Hematocrit 27.6 % (35.0-46.0); Hemoglobin 9.7 gm/dL (11.6-15.3)
[2018-08-06 06:57] LABS: Anion Gap 6 meq/L (5-15); Blood Urea Nitrogen 7 mg/dL (7-18); Calcium 8.2 mg/dL (8.5-10.1); Carbon Dioxide 28.2 meq/L (21.0-32.0); Chloride 101 meq/L (98-107); Glomerular Filtration Rate Greater Than 89 mL/min (>89); Glucose,Random 98 mg/dL (74-106); Potassium 3.8 meq/L (3.5-5.1); Sodium 135 meq/L (136-145)
--- NOTE | 2018-08-06 07:00 | P.PNOP ---
Subjective Interval history: POD 1 s/p ORIF with removal of exfix of left distal femur and proximal tibia fractures doing well. states pain but controlled. Physical Exam Vital signs: Vital Signs 08/05/18 10:20 08/05/18 10:30 08/05/18 10:45 Temperature 96.8 F L Pulse Rate 91 H 93 H 87 Respiratory Rate 13 18 17 Blood Pressure 96/64 L 101/53 L 106/56 L Pulse Oximetry 99 99 100 08/05/18 11:00 08/05/18 11:05 08/05/18 12:00 Temperature 97.8 F 97.8 F Pulse Rate 89 87 92 H Respiratory Rate 13 13 16 Blood Pressure 106/59 L 110/62 Pulse Oximetry 95 96 99 08/05/18 12:25 08/05/18 13:45 08/05/18 16:00 Temperature 98.2 F Pulse Rate 96 H Respiratory Rate 16 16 15 Blood Pressure 106/59 L Pulse Oximetry 100 08/05/18 19:20 08/05/18 19:33 08/05/18 19:38 Temperature 98.5 F Pulse Rate 110 H Respiratory Rate 16 18 18 Blood Pressure 106/59 L Pulse Oximetry 95 08/05/18 20:40 08/05/18 23:16 08/06/18 00:00 Temperature Pulse Rate Respiratory Rate 18 18 18 Blood Pressure Pulse Oximetry 08/06/18 00:16 08/06/18 01:53 08/06/18 02:04 Temperature 98.3 F Pulse Rate 102 H Respiratory Rate 18 18 18 Blood Pressure 110/54 L Pulse Oximetry 98 08/06/18 04:02 08/06/18 04:59 08/06/18 05:26 Temperature 98.0 F Pulse Rate 96 H Respiratory Rate 17 18 18 Blood Pressure 116/58 L Pulse Oximetry 98 Intake & Output 08/05/18 08/05/18 08/06/18 06:59 18:59 06:59 Intake Total 362.5 / 362.5 1000 / 1000 942.5 / 942.5 Output Total 1100 / 1100 3700 / 3700 Balance 362.5 / 362.5 -100 / -100 -2757.5 / -2757.5 Weight 65.5 kg Intake: IV 362.5 / 362.5 200 / 200 462.5 / 462.5 Ofirmev Inj 1,000 mg In 100 ml 100 / 100 200 / 200 @ 400 mls/hr IV.SIG Q6H [facility] Rx# :[id number] Vancomycin Inj 1,250 MG In NS 262.5 / 262.5 262.5 / 262.5 Inj 250 ML @ 250 mls/hr IV.SIG Q12H [facility] Rx#:[id number] Rocephin Inj 2,000 MG In NS Inj 100 / 100 100 / 100 100 ML @ 200 mls/hr IV.SIG Q24H [facility] Rx#:[id number] Oral 480 / 480 Anesthesia Amount 800 / 800 Output: Estimated Blood Loss 200 / 200 Urine Amount (Catheter) 900 / 900 3700 / 3700 Indwelling Urethral Catheter 900 / 900 3700 / 3700 Other: Date of Last Bowel Movement 08/02/18 08/02/18 08/02/18 # Bowel Movements 0 Narrative: LLE: dressings clean and dry. intact. +CKS. strong dorsiflexion. nvi - Urinary Catheter Management Indwelling Urethral Catheter Cath placed during this visit: yes Reason for continuing: Other continuation reason Insertion date: 07/29/18 Insertion time: 22:00 Results - Labs CBC & Chem 7: 08/06/18 06:00 08/06/18 06:00 Laboratory Results - last 24 hr 08/06/18 08/06/18 06:00 06:00 Hgb 9.7 L Hct 27.6 L Sodium 135 L Potassium 3.8 Chloride 101 Carbon Dioxide 28.2 Anion Gap 6 BUN 7 Creatinine 0.38 L Estimated GFR Greater than 89 Random Glucose 98 Calcium 8.2 L - Imaging Impressions Femur X-Ray 08/05/18 00:00 CONCLUSION: 1. Successful open reduction internal fixation of the extensively comminuted distal femoral metadiaphyseal fracture as above. 2. Main fracture fragments are in adequate anatomic alignment. Prominent gap between the distal diaphysis and metadiaphysis representing the area of extensive comminution Tibia/Fibula X-Ray 08/05/18 00:00 CONCLUSION: Open reduction and internal fixation of proximal tibial metadiaphyseal fracture as above. Fracture fragments appear to be in adequate anatomic alignment. Assessment and Plan - Assessment and Plan 1) Left Distal Femur and proximal tibia fractures s/p removal of exfix with ORIF - POD 1 -NWB -no quad sets or leg lifts -PROM 0-90deg -knee brace except for therapy -CM for DC planning -DVT prophylaxis -ortho surgeries complete -f/u with [facility] or [facility] in 2 weeks
[2018-08-06] MEDS: Enoxaparin Inj 30 MG/0.3 ML Syringe SQ SCH ×2 (08:51→20:54)
[2018-08-06] MEDS: Docusate Sodium 100 MG Capsule PO SCH ×2 (08:51→20:54)
[2018-08-06] MEDS: Calcium/Vitamin D 250/125 MG Tablet PO SCH ×3 (08:51→17:47)
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
[2018-08-06] MEDS: Nystatin Liq 500,000 UNIT/5 ML UDC SWISH-SWAL SCH ×2 (20:27→20:51)
[2018-08-07] MEDS: Methocarbamol 500 MG Tablet PO SCH ×2 (06:20→14:15)
--- NOTE | 2018-08-07 07:46 | P.PNOP ---
Subjective Interval history: POD 2 s/p ORIF left distal femur and proximal tibia fxs doing well. pain controlled. no new complaints. has been accepted to [facility] Physical Exam Vital signs: Vital Signs 08/06/18 09:06 08/06/18 12:00 08/06/18 16:00 Temperature 99.5 F 98.6 F 98.6 F Pulse Rate 113 H 107 H 104 H Respiratory Rate 18 18 18 Blood Pressure 104/53 L 115/63 120/57 L Pulse Oximetry 96 97 94 L 08/06/18 18:04 08/06/18 20:04 08/06/18 21:24 Temperature 98.5 F Pulse Rate 105 H Respiratory Rate 17 18 18 Blood Pressure 113/73 Pulse Oximetry 100 08/06/18 23:30 08/07/18 00:21 08/07/18 01:41 Temperature 98.4 F Pulse Rate 110 H Respiratory Rate 18 17 17 Blood Pressure 126/60 Pulse Oximetry 97 08/07/18 01:52 08/07/18 04:32 Temperature 98.4 F Pulse Rate 109 H Respiratory Rate 17 18 Blood Pressure 111/60 Pulse Oximetry 97 Intake & Output 08/06/18 08/07/18 08/07/18 18:59 06:59 18:59 Intake Total 680 / 680 100 / 100 480 / 480 Output Total 2049 / 2049 450 / 450 Balance -1370 / -1370 -350 / -350 480 / 480 Weight 66.8 kg Intake: IV 200 / 200 100 / 100 Ofirmev Inj 1,000 mg In 100 ml 200 / 200 100 / 100 @ 400 mls/hr IV.SIG Q6H [facility] Rx# :[id number] Oral 480 / 480 480 / 480 Output: Urine 2049 450 / 450 Other: # Voids 2 Date of Last Bowel Movement 08/02/18 08/02/18 Narrative: LLE: dressings removed. incisions visualized. healing well. no erythema or drainage. nvi distally - Urinary Catheter Management Indwelling Urethral Catheter Cath placed during this visit: yes Reason for continuing: Other continuation reason Insertion date: 07/29/18 Insertion time: 22:00 Results - Labs CBC & Chem 7: 08/06/18 06:00 08/06/18 06:00 Assessment and Plan - Assessment and Plan 1) Left Distal Femur and proximal tibia fractures s/p removal of exfix with ORIF - POD 2 -NWB -no quad sets or leg lifts -PROM 0-90deg -knee brace except for therapy -CM for DC planning --> plan for DC to CIR today -DVT prophylaxis -ortho surgeries complete -ortho cleared for DC -f/u with [facility] or [facility] in 2 weeks E-FORCSE Prescription Drug Monitoring Database has been queried and verified prior to prescribing the controlled substance. Acute pain exception. This patient has normal, predicted, physiological, and time limited response to an adverse mechanical stimulus associated with surgery, trauma, or acute illness as described in my notes. There is a lack of alternative treatment options other than to include the prescribed narcotic treatment for this condition.
[2018-08-07] MEDS: Docusate Sodium 100 MG Capsule PO SCH (09:49)
[2018-08-07] MEDS: Calcium/Vitamin D 250/125 MG Tablet PO SCH ×2 (09:49→12:04)
[2018-08-07] MEDS: Nystatin Liq 500,000 UNIT/5 ML UDC SWISH-SWAL SCH (09:55)
[2018-08-07] MEDS: Enoxaparin Inj 30 MG/0.3 ML Syringe SQ SCH (09:56)
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
[2018-08-07 12:17] VITALS: BP 112/66; PULSE 111; RESP 19; TEMP 99; O2SAT 98
[2018-08-07] MEDS ORDERED: Nystatin/Diphenhydramine/Lidocaine Mouthwash (Adult) 120 ML Botttle SWISH-SWAL SCH (13:00)
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
== END 2018-08-07 16:13 | DRG 464 ==
LOC: NEPI 20:35 → NEDA 22:32 → EDBD 22:32 → N03 07-30 02:15 → N06 08-02 15:30
PROVIDERS: ADMIT Surgery; ATTEND Surgery
PROC: ORIFMAN (2018-07-31 16:44)
CPT/HCPCS: 29505; 36430; 51702; 70450; 70486; 70498; 71010; 71045; 71260; 72125; 72129; 72132; 72170; 73551; 73552; 73560; 73564; 73590; 73620; 73700; 74177; 75635; 76000; 76937; 80048; 80053; 80202; 82040; 83735; 85014; 85018; 85025; 85027; 85610; 85730; 86850; 86900; 86901; 86923; 90471; 90715; 90774; 90775; 90784; 93005; 94150; 96374; 96375; 97110; 97161; 97167; 97530; 97535; 99285; 99291; C1713; C1776; C8952; C9113; G0390; J0131; J0690; J0696; J1100; J1170; J1580; J1650; J1885; J2250; J2270; J2405; J2765; J3010; J3370; J3480; J7030; J7050; J8501; L1830; L8699; P9016; P9047; Q9967